=== PATIENT | male | born 1970 | race Caucasian/White ===

== ENCOUNTER 2017-10-12 10:36 | Emergency (ER) | payer OTHER ==
[~2017-10-12] VITALS: Ht 193 cm; Wt 181.4 kg
[~2017-10-12 10:36] MED LIST: BENTYL 10 MG CA10 M1 PO; CIPRO500 MG PO; FISH OIL 1,0001 EAC7 PO; FISH OIL 1,001000 M2 PO; FISHOIL; FLAGYL500 MG PO; FLEXERIL PO; HYDROCODON-ACE1 EACH; HYDROCODONE-AP1 EAC6 PO; HYDROXYZINE HCL25 M2 PO; IBUPROFEN 800800 M1 PO; KEFLEX250 MG; MAGNESIUM PO; MOBIC15 MG PO; MULTIVITAMINS1 EAC7; OMEPRAZOLE20 MG PO; OXYCODONE H5 MG/5 ML PO; PAIN RELIEF PM1 EAC2 PO; PERCOCET 10-321 EACH PO; PROBIOTIC1 EAC1 PO
[2017-10-12] MEDS ORDERED: [UNRECOGNIZED DRUG - REMARK] (11:06)
[2017-10-12] MEDS ORDERED: HYDROCODONE-AP1 EAC6 PO (11:21)
[2017-10-12] MEDS ORDERED: IBUPROFEN 800800 M1 PO (11:21)
[2017-10-12 12:11] VITALS: BP 154/88
== END 2017-10-12 12:13 | disposition home or self-care (01) ==
LOC: M.ERS 10:36
DX: S22.41XA Multiple fractures of ribs, right side, initial encounter for closed fracture (principal); Y04.8XXA Assault by other bodily force, initial encounter; Y93.89 Activity, other specified; Y92.89 Other specified places as the place of occurrence of the external cause; Y99.8 Other external cause status

== ENCOUNTER 2019-09-20 02:03 | Emergency (ER) | payer OTHER ==
[~2019-09-20] VITALS: Ht 193 cm; Wt 192.8 kg
[~2019-09-20 02:03] MED LIST changes: +[UNRECOGNIZED DRUG - REMARK]
[2019-09-20] MEDS ORDERED: HYDROCODON-ACE1 EAC8 PO (03:26)
[2019-09-20 03:36] VITALS: BP 148/97
== END 2019-09-20 03:36 | disposition home or self-care (01) ==
LOC: M.ERS 02:03
DX: M25.561 Pain in right knee (principal)